=== PATIENT | female | born 1995 | race Caucasian/White ===

== ENCOUNTER 2023-05-26 16:06 | Emergency (ER) | payer OTHER, SELFPAY ==
[2023-05-26 16:15] VITALS: BP 99/61; PULSE 87; RESP 18; TEMP 36.7; O2SAT 99
[2023-05-26] MEDS: 0.9 % SODIUM CHLORIDE 1,000 ML 1000 ML IV (16:48)
[2023-05-26 17:03] LABS: Bilirubin Urine NEGATIVE (NEGATIVE); Blood Urine TRACE-I (NEGATIVE); Clarity Urine CLEAR (CLEAR); Color Urine YELLOW (YELLOW); Glucose Urine UA NEGATIVE (NEGATIVE); Ketones Urine NEGATIVE (NEGATIVE); Leukocyte Esterase Urine TRACE (NEGATIVE); Nitrite Urine NEGATIVE (NEGATIVE); Protein Urine 30 mg/dL (NEG/TRACE); Specific Gravity Urine 1.025 (1.005-1.025); Urobilinogen Urine 0.2 EU/dL (0.2-1.0); pH Urine 6.5 (5.0-9.0)
[2023-05-26 17:13] LABS: Bacteria Urine TRACE #/HPF (NONE SEEN); Cast Seen? NONE SEEN #/LPF (NONE SEEN); Crystals Seen? None Seen #/HPF (None Seen); Mucus Urine TRACE (NONE SEEN); Squamous Epithelial Cell Urine MODERATE #/LPF (NONE/RARE); Urine Culture Indicated YES
[2023-05-26 17:27] LABS: Basophils Absolute Auto 0.1 10^3/uL (0.0-0.1); Basophils Percent Auto 0.7 % (0.2-2.0); Eosinophils Absolute Auto 0.1 10^3/uL (0.0-0.7); Eosinophils Percent Auto 1.1 % (0.9-7.0); Hematocrit 38.3 % (36.0-48.0); Hemoglobin 13.2 g/dL (12.0-16.0); Immature Granulocytes Abs Auto 0.02 10^3/uL (0.00-0.03); Immature Granulocytes Pct Auto 0.3 % (0.0-0.5); Lymphocytes Absolute Auto 1.4 10^3/uL (1.2-3.8); Lymphocytes Percent Auto 18.5 % (20.5-60.0); Mean Corpuscular HGB Conc 34.5 g/dL (29.9-35.2); Mean Corpuscular Hemoglobin 31.6 pg (26.7-34.0); Mean Corpuscular Volume 91.6 fL (81.0-99.0); Mean Platelet Volume 10.6 fL (9.5-13.5); Monocytes Absolute Auto 0.4 10^3/uL (0.3-0.8); Monocytes Percent Auto 5.4 % (1.7-12.0); Neutrophils Absolute Auto 5.6 10^3/uL (1.4-6.5); Platelet Count 236 10^3/uL (150-450); Red Blood Count 4.18 10^6/uL (4.20-5.40); Red Cell Distribution Width 12.7 % (11.0-15.0); White Blood Count 7.6 10^3/uL (4.0-11.0)
[2023-05-26] MEDS: ONDANSETRON PF 4 MG/2 ML VIAL IV (17:30)
[2023-05-26 17:47] VITALS: BP 101/54; PULSE 57; RESP 18; O2SAT 100
[2023-05-26 17:49] LABS: Alanine Aminotransferase 16 U/L (14-59); Albumin Globulin Ratio 1.3; Alkaline Phosphatase 42 U/L (46-116); Anion Gap 12.6; Aspartate Amino Transferase 19 U/L (15-37); Bilirubin Total 0.4 mg/dL (0.2-1.0); Calcium 8.9 mg/dL (8.5-10.1); Carbon Dioxide 25.2 mmol/L (21.0-32.0); Chloride 105 mmol/L (98-107); Estimated GFR (African America >60 (>=60); Estimated GFR (Non-African Ame >60 (>=60); Glucose 90 mg/dL (74-106); HCG Quantitative <1 mIU/mL; Potassium 3.8 mmol/L (3.5-5.1); Sodium 139 mmol/L (136-145)
--- NOTE | 2023-05-26 17:59 | ED_ITS ---
HPI - General Adult General Chief complaint: Recheck/Abnormal Lab/Rx Stated complaint: ABDOMINAL PAIN AND VOMITTING Time Seen by Provider: 05/26/23 16:19 History of Present Illness HPI narrative: 28-year-old female presents here with a chief complaint of abdominal pain and concern for . She states she took a test at home. She presents here states that nausea vomiting earlier today. Vital signs are stable she is afebrile. Patient is deaf information gathered from freelance interpreter/translator. Patient states she had a heavy menstrual cycle in April the last four or five days. Since typical for her. Related Data Home Medications Medication Instructions Recorded Confirmed No Known Home Medications 05/26/23 05/26/23 Allergies Allergy/AdvReac Type Severity Reaction Status Date / Time phenylephrine AdvReac Intermediate Verified 05/26/23 16:15 [From [facility]] pyrilamine [From [facility]] AdvReac Intermediate Verified 05/26/23 16:15 Review of Systems ROS Narrative All Systems are negative except as noted/marked.All systems reviewed and otherwise negative Exam Narrative Exam Narrative: Nurses note and vital signs reviewed and patient is not hypoxic. General: The patient appears well and in no apparent distress. Patient is resting comfortably on cart. Skin: Warm, dry, no pallor noted. There is no rash noted. Head: Normocephalic, atraumatic Eye: Normal conjunctiva, no drainage, EOMI. PERRL Respiratory: Patient is in no distress, no accessory muscle use, lungs are clear to auscultation, no wheezing, rales or rhonchi Back: non-tender, no CVA tenderness bilaterally to percussion. GI: Normal bowel sounds, no tenderness to palpation, no masses appreciated. No rebound, guarding, or rigidity noted. Musculoskeletal: The patient has no evidence of calf tenderness, no pitting edema, symmetrical pulses noted bilaterally Neurological: A&O x4, normal speech Psychiatric: Cooperative Constitutional Vital Signs - 24 hr 05/26/23 16:15 05/26/23 17:47 Temperature 98.1 F Pulse Rate 57 L Pulse Rate [Monitor] 87 Respiratory Rate 18 18 Blood Pressure 101/54 L Blood Pressure [Left Arm] 99/61 Pulse Oximetry 99 100 Course Vital Signs Vital signs: Vital Signs Temperature 98.1 F 05/26/23 16:15 Pulse Rate 87 05/26/23 16:15 Respiratory Rate 18 05/26/23 16:15 Blood Pressure 99/61 05/26/23 16:15 Pulse Oximetry 99 05/26/23 16:15 Temperature 98.1 F 05/26/23 16:15 Pulse Rate 57 L 05/26/23 17:47 Respiratory Rate 18 05/26/23 17:47 Blood Pressure 101/54 L 05/26/23 17:47 Pulse Oximetry 100 05/26/23 17:47 Medical Decision Making MDM Narrative Medical decision making narrative: Patient presents with a chief complaint of nausea and concern for . She had not had a period since April 25. She was requesting a hCG Quant. CBC BMP and urinalysis were obtained she is not urinalysis was also within normal limits. Patient medicated here with IV fluids and Zofran. She does feel better she states she would like some Zofran for home. Explained her nausea vomiting may be due to gastritis. She has nothing significant at this time. Abdomen soft nontender palpation vital signs are stable. She is currently afebrile. Patient's results were discussed with freelance interpreter/translator who did sign language for her. Patient agrees with plan of care Medical Records Medical records reviewed: Yes I reviewed the patient's medical records Lab Data Lab results reviewed: Yes I reviewed the patient's lab results Labs: Lab Results 05/26/23 05/26/23 Range/Units 16:25 16:50 WBC 7.6 (4.0-11.0) 10^3/uL RBC 4.18 L (4.20-5.40) 10^6/uL Hgb 13.2 (12.0-16.0) g/dL Hct 38.3 (36.0-48.0) % MCV 91.6 (81.0-99.0) fL MCH 31.6 (26.7-34.0) pg MCHC 34.5 (29.9-35.2) g/dL RDW 12.7 (11.0-15.0) % Plt Count 236 (150-450) 10^3/uL MPV 10.6 (9.5-13.5) fL Neut % (Auto) 74.0 (43.0-75.0) % Lymph % (Auto) 18.5 L (20.5-60.0) % [place] % (Auto) 5.4 (1.7-12.0) % Eos % (Auto) 1.1 (0.9-7.0) % Baso % (Auto) 0.7 (0.2-2.0) % Neut # (Auto) 5.6 (1.4-6.5) 10^3/uL Lymph # (Auto) 1.4 (1.2-3.8) 10^3/uL [place] # (Auto) 0.4 (0.3-0.8) 10^3/uL Eos # (Auto) 0.1 (0.0-0.7) 10^3/uL Baso # (Auto) 0.1 (0.0-0.1) 10^3/uL Abs Immat Gran (auto) 0.02 (0.00-0.03) 10^3/uL Imm/Tot Granulo (auto) 0.3 (0.0-0.5) % Sodium 139 (136-145) mmol/L Potassium 3.8 (3.5-5.1) mmol/L Chloride 105 (98-107) mmol/L Carbon Dioxide 25.2 (21.0-32.0) mmol/L Anion Gap 12.6 BUN 12.0 (7.0-18.0) mg/dL Creatinine 0.60 (0.55-1.02) mg/dL Est GFR ( Amer) >60 (>=60) Est GFR (Non-Af Amer) >60 (>=60) BUN/Creatinine Ratio 20.0 Glucose 90 (74-106) mg/dL Calcium 8.9 (8.5-10.1) mg/dL Total Bilirubin 0.4 (0.2-1.0) mg/dL AST 19 (15-37) U/L ALT 16 (14-59) U/L Alkaline Phosphatase 42 L (46-116) U/L Total Protein 7.0 (6.4-8.2) g/dL Albumin 4.0 (3.4-5.0) g/dL Globulin 3.0 g/dL Albumin/Globulin Ratio 1.3 HCG, Quant <1 mIU/mL Urine Color Yellow (YELLOW) Urine Clarity Clear (CLEAR) Urine pH 6.5 (5.0-9.0) Ur Specific [place] 1.025 (1.005-1.025) Urine Protein 30 A (NEG/TRACE) mg/dL Urine Glucose (UA) Negative (NEGATIVE) mg/dL Urine Ketones Negative (NEGATIVE) mg/dL Urine Occult Blood Trace-i (NEGATIVE) Urine Nitrite Negative (NEGATIVE) Urine Bilirubin Negative (NEGATIVE) Urine Urobilinogen 0.2 (0.2-1.0) EU/dL Ur Leukocyte Esterase Trace A (NEGATIVE) Urine RBC 2-5 A (0-2) #/HPF Urine WBC 5-10 A (NONE SEEN) #/HPF Ur Squamous Epith Cells Moderate A (NONE/RARE) #/LPF Urine Crystals None seen (None Seen) #/HPF Urine Bacteria Trace A (NONE SEEN) #/HPF Urine Casts None seen (NONE SEEN) #/LPF Urine Mucus Trace A (NONE SEEN) Ur Culture Indicated? Yes Discharge Plan Discharge Chief Complaint: Recheck/Abnormal Lab/Rx Clinical Impression: Abdominal pain, Nausea & vomiting Patient Disposition: Home, Self-Care Time of Disposition Decision: 17:57 Prescriptions / Home Meds: No Action No Known Home Medications Instructions: Abdominal Pain (ED) Stand Alone Forms: Portal Instructions Referrals: Physician,Non-Staff, MD [Primary Care Provider] - 1 week
--- NOTE | 2023-05-29 09:56 | PC.NURSE ---
05/29/23 0956 called and left message for pt needed atb [facility] [place] as this is pt pharmacy. dr raman ordered amoxicillin 500 mg tid times 7 days for urine culture from 05/26/23. Zay Bright RN
== END 2023-05-26 18:21 | disposition home or self-care (01) ==
PROVIDERS: Physician Assistant; Emergency Provider Emergency Medicine
DX: R10.9 Unspecified abdominal pain (principal); R11.2 Nausea with vomiting, unspecified; H91.3 Deaf nonspeaking, not elsewhere classified
CPT/HCPCS: 36415; 80053; 81001; 84702; 85025; 87086; 87150; 87186; 96374; 99285

== ENCOUNTER 2023-07-20 16:35 | Outpatient (OUT) | payer OTHER, SELFPAY ==
[2023-07-20 17:22] LABS: HCG Quantitative <1 mIU/mL
== END 2023-07-20 16:36 | disposition home or self-care (01) ==
LOC: LAB 16:42
PROVIDERS: Visit Provider Obstetrics & Gynecology
DX: N92.6 Irregular menstruation, unspecified (principal)
CPT/HCPCS: 36415; 84702

== ENCOUNTER 2023-08-12 17:03 | Emergency (ER) | payer OTHER, SELFPAY ==
[2023-08-12 17:21] VITALS: BP 104/68; PULSE 68; RESP 18; TEMP 36.6; O2SAT 98; BMI 19.1
--- NOTE | 2023-08-12 18:46 | ED.GENADUL1 ---
HPI - General Adult General Chief complaint: Abdominal Pain Stated complaint: ABDOMINAL PAIN, BLEEDING OFF/ON Time Seen by Provider: 08/12/23 17:55 Source: patient Mode of arrival: walk-in Limitations: no limitations History of Present Illness HPI narrative: Patient is deaf, A translator/interpreter has been used for sign language, 3 different interpreters during her Emergency Room stay which has been very effective and communication of her history and physical illness, physical exam, disposition, plan and treatment plan and follow-up plan. Communication has been affected. CARMEN rn Was at bedside throughout the entire HPI and physical exam initially, AND Alicia rn Was at bedside throughout the entire discharge DISCUSSION; explanation of treatment plan, my discussion with Dr. Rankin, and the need for follow-up with [place] [facility] [employer] [facility]. Patient is a 28-year-old female who is presenting to the Emergency Room With chief complaint of one month of dysfunctional uterine bleeding, intermittent cramping and looking for answers on how to stop the bleeding, and patient was to have the etiology why she's bleeding, was causing her cramping. Patient currently has been seeing Dr. Rankin, patient is moving to [place] on Tuesday. Patient's had no new trauma. Patient stated several days ago she was having intercourse with her boyfriend and she did have some pain during intercourse so they stopped. Patient has no urinary frequency, urgency or burning. Patient has no fever or chills. No chest pain or shortness of breath. Patient has no other acute complaints Today at this time. Patient denies any type of sexual or physical assault. . All systems are negative except as noted/marked. All systems reviewed and otherwise negative. . Nurses note and vital signs reviewed and patient is not hypoxic. General: The patient appears well and in no apparent distress. Patient is resting comfortably on cart. Patient is not toxic, lethargic, or listless Skin: Warm, dry, no pallor noted. There is no rash noted. No petechiae, purpura. Multiple piercings and tattoos, no signs of secondary infection. Head: Normocephalic, atraumatic Eye: Normal conjunctiva, no drainage, EOMI. PERRL Ears, Nose, Mouth, and Throat: oral mucosa is moist. Nares patent. Mouth without vesicles. Cardiovascular: Regular Rate and Rhythm, no murmur, gallop, rub Respiratory: Patient is in no distress, no accessory muscle use, lungs are clear to auscultation, no wheezing, rales or rhonchi Back: non-tender, no CVA tenderness bilaterally to percussion. No CT LS midline pain GI: soft, Mild Tenderness to palpation To suprapubic area, no tenderness to palpation to the right and left lower quadrant, no pain over McBurney's point, no flank pain bilateral. Very benign abdomen, otherwise no tenderness to palpation, no masses appreciated. No rebound, guarding, or rigidity noted. No flank pain bilateral, No distention Musculoskeletal: Patient has full range of motion of all of the extremities, no motor, sensory, or focal neurological deficits Neurological: A&O x3, normal speech Psychiatric: Cooperative Related Data Previous Rx's Medication Instructions Recorded megestrol 20 mg tablet 20 mg PO ONCE 30 days #30 tabs 08/12/23 Allergies Allergy/AdvReac Type Severity Reaction Status Date / Time phenylephrine AdvReac Intermediate Verified 05/26/23 16:15 [From [facility]] pyrilamine [From [facility]] AdvReac Intermediate Verified 05/26/23 16:15 Exam Constitutional Vital Signs, click to edit/add: Last Vital Signs Temp 97.8 F 08/12/23 17:21 Pulse 68 08/12/23 17:21 Resp 18 08/12/23 17:21 BP 104/68 08/12/23 17:21 Pulse Ox 98 08/12/23 17:21 O2 Del Method Room Air 08/12/23 17:21 Course Vital Signs Vital signs: Vital Signs Temperature 97.8 F 08/12/23 17:21 Pulse Rate 68 08/12/23 17:21 Respiratory Rate 18 08/12/23 17:21 Blood Pressure 104/68 08/12/23 17:21 Pulse Oximetry 98 08/12/23 17:21 Oxygen Delivery Method Room Air 08/12/23 17:21 Temperature 97.8 F 08/12/23 17:21 Pulse Rate 68 08/12/23 17:21 Respiratory Rate 18 08/12/23 17:21 Blood Pressure 104/68 08/12/23 17:21 Pulse Oximetry 98 08/12/23 17:21 Oxygen Delivery Method Room Air 08/12/23 17:21 Medical Decision Making MDM Narrative Medical decision making narrative: I discussed the case with Dr. Rankin, he recommended starting patient on Megace 20 mg daily for 30 days. He agrees no acute indication for lab work or ultrasound testing at this time, this is chronic been going on for the past month. He recommends following up and continuing care in establishing plan with new [employer] [employer] in [place]. He is aware the patient is moving on August 17, this coming Tuesday. Discharge Plan Discharge Chief Complaint: Abdominal Pain Clinical Impression: DUB (dysfunctional uterine bleeding) Patient Disposition: Home, Self-Care Time of Disposition Decision: 17:59 Condition: Good Prescriptions / Home Meds: New megestrol 20 mg tablet 20 mg PO ONCE 30 Days Qty: 30 0RF Instructions: Abnormal (Dysfunctional) Uterine Bleeding (ED) Additional Instructions: Take medication as prescribed To help stop the cramping and bleeding. Establish a new [employer] [employer] in [place] to help with any other female care as needed. Stand Alone Forms: Portal Instructions Referrals: Physician,Non-Staff, MD [Primary Care Provider] - 1 week Discharge Date/Time: 08/12/23 18:19
== END 2023-08-12 18:19 | disposition home or self-care (01) ==
PROVIDERS: Emergency Provider Emergency Medicine
DX: N93.8 Other specified abnormal uterine and vaginal bleeding (principal); H91.93 Unspecified hearing loss, bilateral
CPT/HCPCS: 99283

== ENCOUNTER 2023-11-15 18:00 | Emergency (ER) | payer OTHER, SELFPAY ==
--- NOTE | 2023-11-15 18:02 | US_ITS ---
The [address] [address] Patient Name: CATALINA GREEN MRN: [id number] date: 1995 Sex: F Assigned Patient Location: ED.MAIN Current Patient Location: Accession/Order Number: [id number] Exam Date: 11/15/2023 21:00 Report Date: 11/15/2023 22:05 At the request of: NIDIA KC Procedure: US OB transvaginal EXAMINATION: US OB transvaginal TECHNIQUE: Transabdominal followed by transvaginal for better detail. Grayscale and color flow Doppler imaging. HISTORY: vag bleeding. COMPARISON: CT scan 09/23/2022 FINDINGS: Uterus and cervix: Uterus measures 9.4 x 5.4 x 4.8 cm. No focal abnormality. Endometrium: Thickness measures 11mm. No intrauterine identified. Right ovary: Measures 2.5 x 1.5 x 2.2 cm. Normal sim scale and Doppler appearance. Left ovary: Measures 3.3 x 2.1 x 3.1 cm. Normal sim scale and Doppler appearance. Adnexa: No adnexal mass lesion. Cul-de-sac: Small amount of simple appearing free fluid in the cul-de-sac. US/US OB transvaginal IMPRESSION: No evidence for intrauterine or extrauterine . Continued monitoring of beta hCG levels recommended with repeat ultrasound if clinically necessary. Electronically authenticated by: BRY CARTER Date: 11/15/2023 22:05
[2023-11-15 18:14] VITALS: BP 123/70; PULSE 86; RESP 16; TEMP 36.8; O2SAT 97; BMI 20.8
[2023-11-15 18:37] LABS: Basophils Absolute Auto 0.1 10^3/uL (0.0-0.1); Basophils Percent Auto 0.6 % (0.2-2.0); Eosinophils Absolute Auto 0.1 10^3/uL (0.0-0.7); Hematocrit 38.6 % (36.0-48.0); Hemoglobin 13.2 g/dL (12.0-16.0); Immature Granulocytes Abs Auto 0.01 10^3/uL (0.00-0.03); Immature Granulocytes Pct Auto 0.1 % (0.0-0.5); Lymphocytes Absolute Auto 1.8 10^3/uL (1.2-3.8); Mean Corpuscular HGB Conc 34.2 g/dL (29.9-35.2); Mean Corpuscular Hemoglobin 31.3 pg (26.7-34.0); Mean Corpuscular Volume 91.5 fL (81.0-99.0); Monocytes Absolute Auto 0.6 10^3/uL (0.3-0.8); Monocytes Percent Auto 6.2 % (1.7-12.0); Neutrophils Absolute Auto 7.3 10^3/uL (1.4-6.5); Neutrophils Percent Auto 74.1 % (43.0-75.0); Platelet Count 236 10^3/uL (150-450); Red Blood Count 4.22 10^6/uL (4.20-5.40); Red Cell Distribution Width 12.4 % (11.0-15.0); White Blood Count 9.8 10^3/uL (4.0-11.0)
[2023-11-15 19:07] LABS: HCG Quantitative 4501 mIU/mL
--- NOTE | 2023-11-15 19:16 | ED.GENADUL1 ---
Documented by User: LEOPOLDO Davies 11/15/23 21:30 HPI - General Adult General Chief complaint: Vaginal Bleeding Stated complaint: 6WKS /BLEEDING CRAMPS Time Seen by Provider: 11/15/23 18:01 Source: director of student affairs Mode of arrival: walk-in Limitations: language barrier History of Present Illness HPI narrative: Patient is a A3 who presents to the emergency department for the evaluation of vaginal bleeding that began this afternoon. Patient was 28 years old, she is deaf and sign language interpreting services are being used for history and physical. Patient states she was in the emergency department earlier today with her son who fell and hit his head, on going home this afternoon, the patient had pelvic cramping and passed a small amount of red blood. She states the bleeding got slightly worse on arrival to the ER. She is currently not experiencing any pain, she has had no fevers or vomiting. She has had 3 previous miscarriages. No medications prior to arrival. Related Data Previous Rx's Medication Instructions Recorded megestrol 20 mg tablet 20 mg PO ONCE 30 days #30 tabs 08/12/23 acetaminophen 300 mg-codeine 30 mg 1 tab PO Q6H PRN pain 3 days #10 11/15/23 tablet tabs ondansetron 4 mg disintegrating 4 mg PO Q6H PRN nausea and 11/15/23 tablet vomiting #20 tabs Allergies Allergy/AdvReac Type Severity Reaction Status Date / Time phenylephrine AdvReac Intermediate Verified 05/26/23 16:15 [From [facility]] pyrilamine [From [facility]] AdvReac Intermediate Verified 05/26/23 16:15 Review of Systems ROS Constitutional Denies: fever or chills Ears, nose, mouth, and throat Denies: throat pain or nasal congestion Cardiovascular Denies: chest pain Respiratory Denies: shortness of breath Gastrointestinal Denies: abdominal pain, nausea or vomiting PFSH PFSH Social History Smoking status: Never smoker Exam Constitutional Vital Signs, click to edit/add: Last Vital Signs Temp 98.3 F 11/15/23 18:14 Pulse 86 11/15/23 18:14 Resp 16 11/15/23 18:14 BP 123/70 11/15/23 18:14 Pulse Ox 97 11/15/23 18:14 O2 Del Method Room Air 11/15/23 18:14 Course Vital Signs Vital signs: Vital Signs Temperature 98.3 F 11/15/23 18:14 Pulse Rate 86 11/15/23 18:14 Respiratory Rate 16 11/15/23 18:14 Blood Pressure 123/70 11/15/23 18:14 Pulse Oximetry 97 11/15/23 18:14 Oxygen Delivery Method Room Air 11/15/23 18:14 Temperature 98.3 F 11/15/23 18:14 Pulse Rate 86 11/15/23 18:14 Respiratory Rate 16 11/15/23 18:14 Blood Pressure 123/70 11/15/23 18:14 Pulse Oximetry 97 11/15/23 18:14 Oxygen Delivery Method Room Air 11/15/23 18:14 Medical Decision Making MDM Narrative Medical decision making narrative: 2128: Labs were obtained, patient has Rh- blood type, she was given RhoGAM in the emergency department. She has a quantitative hCG level of 4500 and was sent for an ultrasound to rule out ectopic and evaluate for miscarriage. Ultrasound results are pending at this time and case turned over to attending physician. Patient requested Tylenol for cramping. She has stable vital signs, abdomen is soft and benign and she is stable at time of signout to attending physician. Medical Records Medical records reviewed: Yes I reviewed the patient's medical records Lab Data Lab results reviewed: Yes I reviewed the patient's lab results Labs: Lab Results 11/15/23 11/15/23 Range/Units 18:20 18:25 WBC 9.8 (4.0-11.0) 10^3/uL RBC 4.22 (4.20-5.40) 10^6/uL Hgb 13.2 (12.0-16.0) g/dL Hct 38.6 (36.0-48.0) % MCV 91.5 (81.0-99.0) fL MCH 31.3 (26.7-34.0) pg MCHC 34.2 (29.9-35.2) g/dL RDW 12.4 (11.0-15.0) % Plt Count 236 (150-450) 10^3/uL MPV 10.0 (9.5-13.5) fL Neut % (Auto) 74.1 (43.0-75.0) % Lymph % (Auto) 18.0 L (20.5-60.0) % [place] % (Auto) 6.2 (1.7-12.0) % Eos % (Auto) 1.0 (0.9-7.0) % Baso % (Auto) 0.6 (0.2-2.0) % Neut # (Auto) 7.3 H (1.4-6.5) 10^3/uL Lymph # (Auto) 1.8 (1.2-3.8) 10^3/uL [place] # (Auto) 0.6 (0.3-0.8) 10^3/uL Eos # (Auto) 0.1 (0.0-0.7) 10^3/uL Baso # (Auto) 0.1 (0.0-0.1) 10^3/uL Abs Immat Gran (auto) 0.01 (0.00-0.03) 10^3/uL Imm/Tot Granulo (auto) 0.1 (0.0-0.5) % HCG, Quant 4501 mIU/mL Urine Color Lt. yellow (YELLOW) Urine Clarity Clear (CLEAR) Urine pH 8.0 (5.0-9.0) Ur Specific [place] 1.015 (1.005-1.025) Urine Protein Negative (NEG/TRACE) mg/dL Urine Glucose (UA) Negative (NEGATIVE) mg/dL Urine Ketones Negative (NEGATIVE) mg/dL Urine Occult Blood Large A (NEGATIVE) Urine Nitrite Negative (NEGATIVE) Urine Bilirubin Negative (NEGATIVE) Urine Urobilinogen 0.2 (0.2-1.0) EU/dL Ur Leukocyte Esterase Negative (NEGATIVE) Urine RBC 5-10 A (0-2) #/HPF Urine WBC None seen (NONE SEEN) #/HPF Ur Squamous Epith Cells Rare (NONE/RARE) #/LPF Urine Crystals None seen (None Seen) #/HPF Urine Bacteria None seen (NONE SEEN) #/HPF Urine Casts None seen (NONE SEEN) #/LPF Urine Mucus None seen (NONE SEEN) Blood Type B Negative Discharge Plan Discharge Chief Complaint: Vaginal Bleeding Clinical Impression: Miscarriage Patient Disposition: Home, Self-Care Time of Disposition Decision: 22:26 Condition: Good Mode of Transportation: Private Vehicle Prescriptions / Home Meds: New acetaminophen-codeine 300-30 mg tablet 1 tab PO Q6H PRN (Reason: pain) 3 Days Qty: 10 0RF ondansetron 4 mg tablet,disintegrating 4 mg PO Q6H PRN (Reason: nausea and vomiting) Qty: 20 0RF No Action megestrol 20 mg tablet 20 mg PO ONCE 30 Days Qty: 30 0RF Stand Alone Forms: Portal Instructions Referrals: Physician,Non-Staff, [Primary Care Provider] - 1 week Documented by User: Keven Frausto MD 11/15/23 22:29 HPI - General Adult General Chief complaint: Vaginal Bleeding Stated complaint: 6WKS /BLEEDING CRAMPS Time Seen by Provider: 11/15/23 18:01 Related Data Previous Rx's Medication Instructions Recorded megestrol 20 mg tablet 20 mg PO ONCE 30 days #30 tabs 08/12/23 acetaminophen 300 mg-codeine 30 mg 1 tab PO Q6H PRN pain 3 days #10 11/15/23 tablet tabs ondansetron 4 mg disintegrating 4 mg PO Q6H PRN nausea and 11/15/23 tablet vomiting #20 tabs Allergies Allergy/AdvReac Type Severity Reaction Status Date / Time phenylephrine AdvReac Intermediate Verified 05/26/23 16:15 [From [facility]] pyrilamine [From [facility] CT] AdvReac Intermediate Verified 05/26/23 16:15 PFSH PFSH Social History Smoking status: Never smoker Exam Constitutional Vital Signs, click to edit/add: Last Vital Signs Temp 98.3 F 11/15/23 18:14 Pulse 86 11/15/23 18:14 Resp 16 11/15/23 18:14 BP 123/70 11/15/23 18:14 Pulse Ox 97 11/15/23 18:14 O2 Del Method Room Air 11/15/23 18:14 Course Vital Signs Vital signs: Vital Signs Temperature 98.3 F 11/15/23 18:14 Pulse Rate 86 11/15/23 18:14 Respiratory Rate 16 11/15/23 18:14 Blood Pressure 123/70 11/15/23 18:14 Pulse Oximetry 97 11/15/23 18:14 Oxygen Delivery Method Room Air 11/15/23 18:14 Temperature 98.3 F 11/15/23 18:14 Pulse Rate 86 11/15/23 18:14 Respiratory Rate 16 11/15/23 18:14 Blood Pressure 123/70 11/15/23 18:14 Pulse Oximetry 97 11/15/23 18:14 Oxygen Delivery Method Room Air 11/15/23 18:14 Medical Decision Making MDM Narrative Medical decision making narrative: 2128: Labs were obtained, patient has Rh- blood type, she was given RhoGAM in the emergency department. She has a quantitative hCG level of 4500 and was sent for an ultrasound to rule out ectopic and evaluate for miscarriage. Ultrasound results are pending at this time and case turned over to attending physician. Patient requested Tylenol for cramping. She has stable vital signs, abdomen is soft and benign and she is stable at time of signout to attending physician. 10:30pm ultrasound shows no evidence of IUP or extrauterine . Titer is 4501 and she has received Rhogam. findings are discussed thoroughly with the patient and she was instructed to call her business services analyst in the morning for follow-up. Treatment diagnosis and follow-up were discussed with the patient. Differential Diagnosis Differential Diagnosis: IUP, ectopic, miscarriage, threatened miscarriage Lab Data Labs: Lab Results 11/15/23 11/15/23 Range/Units 18:20 18:25 WBC 9.8 (4.0-11.0) 10^3/uL RBC 4.22 (4.20-5.40) 10^6/uL Hgb 13.2 (12.0-16.0) g/dL Hct 38.6 (36.0-48.0) % MCV 91.5 (81.0-99.0) fL MCH 31.3 (26.7-34.0) pg MCHC 34.2 (29.9-35.2) g/dL RDW 12.4 (11.0-15.0) % Plt Count 236 (150-450) 10^3/uL MPV 10.0 (9.5-13.5) fL Neut % (Auto) 74.1 (43.0-75.0) % Lymph % (Auto) 18.0 L (20.5-60.0) % [place] % (Auto) 6.2 (1.7-12.0) % Eos % (Auto) 1.0 (0.9-7.0) % Baso % (Auto) 0.6 (0.2-2.0) % Neut # (Auto) 7.3 H (1.4-6.5) 10^3/uL Lymph # (Auto) 1.8 (1.2-3.8) 10^3/uL [place] # (Auto) 0.6 (0.3-0.8) 10^3/uL Eos # (Auto) 0.1 (0.0-0.7) 10^3/uL Baso # (Auto) 0.1 (0.0-0.1) 10^3/uL Abs Immat Gran (auto) 0.01 (0.00-0.03) 10^3/uL Imm/Tot Granulo (auto) 0.1 (0.0-0.5) % HCG, Quant 4501 mIU/mL Urine Color Lt. yellow (YELLOW) Urine Clarity Clear (CLEAR) Urine pH 8.0 (5.0-9.0) Ur Specific [place] 1.015 (1.005-1.025) Urine Protein Negative (NEG/TRACE) mg/dL Urine Glucose (UA) Negative (NEGATIVE) mg/dL Urine Ketones Negative (NEGATIVE) mg/dL Urine Occult Blood Large A (NEGATIVE) Urine Nitrite Negative (NEGATIVE) Urine Bilirubin Negative (NEGATIVE) Urine Urobilinogen 0.2 (0.2-1.0) EU/dL Ur Leukocyte Esterase Negative (NEGATIVE) Urine RBC 5-10 A (0-2) #/HPF Urine WBC None seen (NONE SEEN) #/HPF Ur Squamous Epith Cells Rare (NONE/RARE) #/LPF Urine Crystals None seen (None Seen) #/HPF Urine Bacteria None seen (NONE SEEN) #/HPF Urine Casts None seen (NONE SEEN) #/LPF Urine Mucus None seen (NONE SEEN) Blood Type B Negative Imaging Data pelvic ultrasound: Radiologist's impression: Procedure: US OB transvaginal EXAMINATION: US OB transvaginal TECHNIQUE: Transabdominal followed by transvaginal for better detail. Grayscale and color flow Doppler imaging. HISTORY: vag bleeding. COMPARISON: CT scan 09/23/2022 FINDINGS: Uterus and cervix: Uterus measures 9.4 x 5.4 x 4.8 cm. No focal abnormality. Endometrium: Thickness measures 11mm. No intrauterine identified. Right ovary: Measures 2.5 x 1.5 x 2.2 cm. Normal sim scale and Doppler appearance. Left ovary: Measures 3.3 x 2.1 x 3.1 cm. Normal sim scale and Doppler appearance. Adnexa: No adnexal mass lesion. Cul-de-sac: Small amount of simple appearing free fluid in the cul-de-sac. IMPRESSION: No evidence for intrauterine or extrauterine . Continued monitoring of beta hCG levels recommended with repeat ultrasound if clinically necessary. Electronically authenticated by: BRY CARTER Date: 11/15/2023 22:05 Discharge Plan Discharge Chief Complaint: Vaginal Bleeding Clinical Impression: Miscarriage Patient Disposition: Home, Self-Care Time of Disposition Decision: 22:26 Condition: Good Mode of Transportation: Private Vehicle Prescriptions / Home Meds: New acetaminophen-codeine 300-30 mg tablet 1 tab PO Q6H PRN (Reason: pain) 3 Days Qty: 10 0RF ondansetron 4 mg tablet,disintegrating 4 mg PO Q6H PRN (Reason: nausea and vomiting) Qty: 20 0RF No Action megestrol 20 mg tablet 20 mg PO ONCE 30 Days Qty: 30 0RF Stand Alone Forms: Portal Instructions Referrals: Physician,Non-Staff, MD [Primary Care Provider] - 1 week
[2023-11-15 19:37] LABS: Bilirubin Urine NEGATIVE (NEGATIVE); Blood Urine LARGE (NEGATIVE); Clarity Urine CLEAR (CLEAR); Color Urine LT. YELLOW (YELLOW); Glucose Urine UA NEGATIVE (NEGATIVE); Ketones Urine NEGATIVE (NEGATIVE); Leukocyte Esterase Urine NEGATIVE (NEGATIVE); Nitrite Urine NEGATIVE (NEGATIVE); Protein Urine NEGATIVE (NEG/TRACE); Specific Gravity Urine 1.015 (1.005-1.025); Urobilinogen Urine 0.2 EU/dL (0.2-1.0)
[2023-11-15 19:47] LABS: Urine Microscopic Indicated YES
[2023-11-15 19:51] LABS: Bacteria Urine NONE SEEN #/HPF (NONE SEEN); Cast Seen? NONE SEEN #/LPF (NONE SEEN); Crystals Seen? None Seen #/HPF (None Seen); Mucus Urine NONE SEEN (NONE SEEN); Squamous Epithelial Cell Urine RARE #/LPF (NONE/RARE); WBC Urine NONE SEEN #/HPF (NONE SEEN)
[2023-11-15] MEDS: RHO(D) IMMUNE GLOBULIN 1,500 UNIT SYRINGE 1500 UNIT IM (20:03)
[2023-11-15] MEDS: ACETAMINOPHEN 325 MG TABLET 650 MG PO (20:05)
== END 2023-11-15 22:40 | disposition home or self-care (01) ==
PROVIDERS: Physician Assistant; Emergency Provider Emergency Medicine
DX: O03.9 Complete or unspecified spontaneous abortion without complication (principal); H91.3 Deaf nonspeaking, not elsewhere classified; Z67.91 Unspecified blood type, Rh negative
CPT/HCPCS: 36415; 76817; 81001; 84702; 85025; 86900; 86901; 96372; 99285; J2790

== ENCOUNTER 2023-11-16 14:30 | Emergency (ER) | payer OTHER, SELFPAY ==
--- NOTE | 2023-11-16 14:37 | ECG_ITS ---
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
[2023-11-16 14:52] VITALS: BP 115/69; PULSE 91; RESP 20; TEMP 37.2; O2SAT 98
[2023-11-16 15:14] LABS: Basophils Absolute Auto 0.1 10^3/uL (0.0-0.1); Basophils Percent Auto 0.4 % (0.2-2.0); Eosinophils Percent Auto 0.3 % (0.9-7.0); Hematocrit 38.6 % (36.0-48.0); Hemoglobin 12.9 g/dL (12.0-16.0); Immature Granulocytes Abs Auto 0.04 10^3/uL (0.00-0.03); Immature Granulocytes Pct Auto 0.3 % (0.0-0.5); Lymphocytes Absolute Auto 2.1 10^3/uL (1.2-3.8); Lymphocytes Percent Auto 16.2 % (20.5-60.0); Mean Corpuscular HGB Conc 33.4 g/dL (29.9-35.2); Mean Corpuscular Hemoglobin 30.5 pg (26.7-34.0); Mean Corpuscular Volume 91.3 fL (81.0-99.0); Mean Platelet Volume 10.2 fL (9.5-13.5); Monocytes Absolute Auto 0.7 10^3/uL (0.3-0.8); Monocytes Percent Auto 5.4 % (1.7-12.0); Neutrophils Absolute Auto 10.1 10^3/uL (1.4-6.5); Neutrophils Percent Auto 77.4 % (43.0-75.0); Platelet Count 271 10^3/uL (150-450); Red Blood Count 4.23 10^6/uL (4.20-5.40); Red Cell Distribution Width 12.7 % (11.0-15.0); White Blood Count 13.1 10^3/uL (4.0-11.0)
[2023-11-16 15:29] LABS: Alanine Aminotransferase 8 U/L (14-59); Albumin Globulin Ratio 1.1; Albumin Level 3.8 g/dL (3.4-5.0); Alkaline Phosphatase 52 U/L (46-116); Anion Gap 13.1; Aspartate Amino Transferase 16 U/L (15-37); BUN Creatinine Ratio 12.1; Bilirubin Total 0.5 mg/dL (0.2-1.0); Calcium 9.5 mg/dL (8.5-10.1); Carbon Dioxide 25.3 mmol/L (21.0-32.0); Chloride 102 mmol/L (98-107); Estimated GFR (African America >60 (>=60); Estimated GFR (Non-African Ame >60 (>=60); Globulin 3.6 g/dL; Glucose 96 mg/dL (74-106); Potassium 3.4 mmol/L (3.5-5.1); Sodium 137 mmol/L (136-145); Total Protein 7.4 g/dL (6.4-8.2)
[2023-11-16] MEDS: 0.9 % SODIUM CHLORIDE 1,000 ML 1000 ML IV (15:34)
[2023-11-16 16:06] LABS: HCG Quantitative 1940 mIU/mL
[2023-11-16] MEDS: ONDANSETRON PF 4 MG/2 ML VIAL IV ×2 (16:19→20:59)
[2023-11-16] MEDS: HYDROMORPHONE HCL 1 MG/ML CARTRIDGE IV (16:19)
[2023-11-16 16:40] LABS: Bilirubin Urine NEGATIVE (NEGATIVE); Blood Urine SMALL (NEGATIVE); Clarity Urine CLEAR (CLEAR); Color Urine YELLOW (YELLOW); Glucose Urine UA NEGATIVE (NEGATIVE); Ketones Urine TRACE mg/dL (NEGATIVE); Leukocyte Esterase Urine NEGATIVE (NEGATIVE); Nitrite Urine NEGATIVE (NEGATIVE); Protein Urine NEGATIVE (NEG/TRACE); Specific Gravity Urine 1.015 (1.005-1.025); Urobilinogen Urine 0.2 EU/dL (0.2-1.0)
[2023-11-16 16:41] LABS: Urine Microscopic Indicated YES
--- NOTE | 2023-11-16 16:48 | ED_ITS ---
HPI - Abdominal Pain General Chief Complaint: Abdominal Pain Stated Complaint: SYNCOPE Time Seen by Provider: 11/16/23 14:37 Source: resident engineer Mode of arrival: walk-in Limitations: language barrier History of Present Illness HPI narrative: An resident engineer was used in order to converse with this patient as she is deaf. Patient presents with left sided pelvic/lower abdominal pain that began last night. It became so intense that the patient passed out at home. Her friend was a witness and said that the patient was pale, her eyes were twitching and it took a long time for the patient to wake up. The patient apparently regained consciousness and continued to have the left pelvis/abdominal pain throughout the night. She had been evaluated in the ED yesterday and had a miscarriage - she passed a lot of blood vaginally and had no evidence of IUP of US. Her quant at that time was over 4000. She said that she continue to have some vaginal bleeding at home prior to the syncopal episode. Her REMNANTS CUTTER called her today and when she told the office what happened last night, they told her to come to the ED to be evaluated. In our ED on this visit, she complains of feeling dizzy and having left pelvic/LLQ abd pain. She told me that she took excedrin for the pain. Related Data Previous Rx's Medication Instructions Recorded megestrol 20 mg tablet 20 mg PO ONCE 30 days #30 tabs 08/12/23 acetaminophen 300 mg-codeine 30 mg 1 tab PO Q6H PRN pain 3 days #10 11/15/23 tablet tabs ondansetron 4 mg disintegrating 4 mg PO Q6H PRN nausea and 11/15/23 tablet vomiting #20 tabs Allergies Allergy/AdvReac Type Severity Reaction Status Date / Time phenylephrine AdvReac Intermediate Verified 05/26/23 16:15 [From [facility]] pyrilamine [From [facility]] AdvReac Intermediate Verified 05/26/23 16:15 PFSH PFSH Social History Smoking status: Never smoker Exam Narrative Exam Narrative: Nurses notes and vital signs reviewed and patient is not hypoxic. afebrile General: Well-appearing and in no apparent distress. Skin: Warm, dry, no pallor noted. Eye: Pupils are equal, round and EOMI. No scleral icterus. Ears, Nose, Mouth, and Throat: Oral mucosa is moist Cardiovascular: Regular Rate and Rhythm without murmur, gallop or rub. Respiratory: No accessory muscle use or respiratory distress. Lungs are clear to auscultation, no wheezing, rales or rhonchi Chest Wall: no tenderness Back: No CVA tenderness Musculoskeletal: normal ROM, no calf or popliteal tenderness, no lower extr emity edema/swelling GI: Abdomen is soft, non-distended. Normal bowel sounds. No masses appreciated. focal LLQ tenderness to palpation. No rebound, guarding, or rigidity noted. Neurological: A&O x4. No cranial nerve dysfunction observed. No truncal ataxia. Moves all extremities. Sensation intact. Psychiatric: Cooperative and interactive. Normal mood and affect. Constitutional Vital Signs, click to edit/add: Last Vital Signs Temp 98.9 F 11/16/23 14:52 Pulse 91 H 11/16/23 14:52 Resp 20 11/16/23 14:52 BP 115/69 11/16/23 14:52 Pulse Ox 98 11/16/23 14:52 O2 Del Method Room Air 11/16/23 14:52 Course Vital Signs Vital signs: Vital Signs Temperature 98.9 F 11/16/23 14:52 Pulse Rate 91 H 11/16/23 14:52 Respiratory Rate 20 11/16/23 14:52 Blood Pressure 115/69 11/16/23 14:52 Pulse Oximetry 98 11/16/23 14:52 Oxygen Delivery Method Room Air 11/16/23 14:52 Temperature 98.9 F 11/16/23 14:52 Pulse Rate 91 H 11/16/23 14:52 Respiratory Rate 20 11/16/23 14:52 Blood Pressure 115/69 11/16/23 14:52 Pulse Oximetry 98 11/16/23 14:52 Oxygen Delivery Method Room Air 11/16/23 14:52 MDM - Abdominal Pain MDM Narrative Medical decision making narrative: Peripheral IV established and blood drawn and sent for testing. Urine also ordered to be obtained and sent for testing. Ultrasound the pelvis also ordered. The patient's white blood cell count is elevated at 13.1, left shift is noted. CMP is notable for decreased potassium at 3.4, normal renal function, normal LFTs. UA negative Quantitative hCG has decreased from over 4000 yesterday to 1940 today, consistent with miscarriage. Prelim report from [facility] is enlarged left ovary from volume of 10 yesterday to 93 today with a lot more free fluid. I spoke with Dr Rankin and he wants the actual radiologist report. Patient signed out to Dr Araya and she will call [facility] to review the rad reading. Lab Data Attestation: I reviewed the patient's lab results. Labs: Lab Results 11/16/23 11/16/23 11/16/23 Range/Units 14:57 15:48 16:05 WBC 13.1 H (4.0-11.0) 10^3/uL RBC 4.23 (4.20-5.40) 10^6/uL Hgb 12.9 (12.0-16.0) g/dL Hct 38.6 (36.0-48.0) % MCV 91.3 (81.0-99.0) fL MCH 30.5 (26.7-34.0) pg MCHC 33.4 (29.9-35.2) g/dL RDW 12.7 (11.0-15.0) % Plt Count 271 (150-450) 10^3/uL MPV 10.2 (9.5-13.5) fL Neut % (Auto) 77.4 H (43.0-75.0) % Lymph % (Auto) 16.2 L (20.5-60.0) % [place] % (Auto) 5.4 (1.7-12.0) % Eos % (Auto) 0.3 L (0.9-7.0) % Baso % (Auto) 0.4 (0.2-2.0) % Neut # (Auto) 10.1 H (1.4-6.5) 10^3/uL Lymph # (Auto) 2.1 (1.2-3.8) 10^3/uL [place] # (Auto) 0.7 (0.3-0.8) 10^3/uL Eos # (Auto) 0.0 (0.0-0.7) 10^3/uL Baso # (Auto) 0.1 (0.0-0.1) 10^3/uL Abs Immat Gran (auto) 0.04 H (0.00-0.03) 10^3/uL Imm/Tot Granulo (auto) 0.3 (0.0-0.5) % Sodium 137 (136-145) mmol/L Potassium 3.4 L (3.5-5.1) mmol/L Chloride 102 (98-107) mmol/L Carbon Dioxide 25.3 (21.0-32.0) mmol/L Anion Gap 13.1 BUN 8.0 (7.0-18.0) mg/dL Creatinine 0.66 (0.55-1.02) mg/dL Est GFR ( Amer) >60 (>=60) Est GFR (Non-Af Amer) >60 (>=60) BUN/Creatinine Ratio 12.1 Glucose 96 (74-106) mg/dL Calcium 9.5 (8.5-10.1) mg/dL Total Bilirubin 0.5 (0.2-1.0) mg/dL AST 16 (15-37) U/L ALT 8 L (14-59) U/L Alkaline Phosphatase 52 (46-116) U/L Total Protein 7.4 (6.4-8.2) g/dL Albumin 3.8 (3.4-5.0) g/dL Globulin 3.6 g/dL Albumin/Globulin Ratio 1.1 HCG, Quant 1940 mIU/mL Urine Color Yellow (YELLOW) Urine Clarity Clear (CLEAR) Urine pH 7.0 (5.0-9.0) Ur Specific [place] 1.015 (1.005-1.025) Urine Protein Negative (NEG/TRACE) mg/dL Urine Glucose (UA) Negative (NEGATIVE) mg/dL Urine Ketones Trace A (NEGATIVE) mg/dL Urine Occult Blood Small A (NEGATIVE) Urine Nitrite Negative (NEGATIVE) Urine Bilirubin Negative (NEGATIVE) Urine Urobilinogen 0.2 (0.2-1.0) EU/dL Ur Leukocyte Esterase Negative (NEGATIVE) Urine RBC 2-5 A (0-2) #/HPF Urine WBC 2-5 A (NONE SEEN) #/HPF Ur Squamous Epith Cells Moderate A (NONE/RARE) #/LPF Urine Crystals None seen (None Seen) #/HPF Urine Bacteria Trace A (NONE SEEN) #/HPF Urine Casts None seen (NONE SEEN) #/LPF Urine Mucus Trace A (NONE SEEN) Ur Culture Indicated? No ECG Data Attestation: I personally reviewed and interpreted this ECG as follows: Interpretation: EKG interpretation: Emergency Department physician interpretation. Normal sinus rhythm at 75bpm. Normal axis, normal intervals and no ST segment elevation or depression. Normal EKG. Discharge Plan Discharge Chief Complaint: Abdominal Pain Clinical Impression: Pelvic pain, Syncope Patient Disposition: Still a Patient Prescriptions / Home Meds: No Action acetaminophen-codeine 300-30 mg tablet 1 tab PO Q6H PRN (Reason: pain) 3 Days Qty: 10 0RF ondansetron 4 mg tablet,disintegrating 4 mg PO Q6H PRN (Reason: nausea and vomiting) Qty: 20 0RF megestrol 20 mg tablet 20 mg PO ONCE 30 Days Qty: 30 0RF Referrals: Physician,Non-Staff, MD [Primary Care Provider] - 1 week
[2023-11-16 16:54] LABS: Bacteria Urine TRACE #/HPF (NONE SEEN); Cast Seen? NONE SEEN #/LPF (NONE SEEN); Crystals Seen? None Seen #/HPF (None Seen); Mucus Urine TRACE (NONE SEEN); Squamous Epithelial Cell Urine MODERATE #/LPF (NONE/RARE); Urine Culture Indicated NO
--- NOTE | 2023-11-16 17:28 | PC.NURSE ---
informed pt she was up next for ultrasound. pt admits that her pain is much better, jsut gets worse with movement. denies any needs
--- NOTE | 2023-11-16 17:30 | US_ITS ---
[address] [address] Patient Name: CATALINA GREEN MRN: [id number] date: 1995 Sex: F Assigned Patient Location: ER Current Patient Location: [facility] Accession/Order Number: [id number] Exam Date: 11/16/2023 17:30 Report Date: 11/16/2023 19:12 At the request of: ERASTO HARTMAN Procedure: US pelvis transvaginal EXAMINATION: US pelvis transvaginal TECHNIQUE: Transvaginal sonography. Grayscale and color flow Doppler imaging. HISTORY: left pelvic pain after miscarriage. COMPARISON: 11/15/2023 FINDINGS: Uterus and cervix: Uterus measures 10.5 x 4.6 x 5.4 cm. 3 mm echogenic focus within the posterior myometrium suggesting a calcification. Endometrium: Thickness measures 14mm. Endometrium is unremarkable without evidence for gestational sac. Right ovary: Measures 3.3 x 2.2 x 1.9 cm. Normal sim scale and Doppler appearance. Left ovary: Measures 8 x 3.7 x 6.1 3.3 cm. Round heterogeneous hypoechoic focus of the left ovary, question a hemorrhagic cyst. Normal Doppler appearance of the left ovary. Adnexa: No additional adnexal mass Cul-de-sac: Moderate simple appearing free fluid in the right adnexum. US/US pelvis transvaginal IMPRESSION: Hyperechoic abnormality of the left ovary which may represent a hemorrhagic corpus luteum. No convincing evidence for intrauterine or extrauterine . Electronically authenticated by: BRY CARTER Date: 11/16/2023 19:12
[2023-11-16 19:50] VITALS: BP 103/56; PULSE 71; RESP 14; O2SAT 98
[2023-11-16 20:46] VITALS: BP 115/76; PULSE 68; RESP 20; O2SAT 99
--- NOTE | 2023-11-16 20:46 | ED.ABDPAIN1 ---
HPI - Abdominal Pain General Chief Complaint: Abdominal Pain Stated Complaint: SYNCOPE Time Seen by Provider: 11/16/23 14:37 Source: field hand Mode of arrival: walk-in Limitations: language barrier History of Present Illness HPI narrative: This 28-year-old female was signed out to me at shift change pending ultrasound analysis. She presents for abdominal pain after having a miscarriage yesterday. The ultrasound report showed a large heterogeneous hypoechoic focus of the left ovary questionable hemorrhagic cyst with normal Doppler appearance of the left ovary. I did speak to Dr. Rankin, NETWORK PROJECT MANAGER on-call. He requested a reread of the ultrasound because it is unclear how large the cyst is in comparison to the ovary. The patient was seen and evaluated. At this time she states that her pain is not that bad. She is still having some cramping. She'll be given a dose of Zofran and a [place] and understands that I am waiting to hear back from radiology and then I will speak to Dr. Rankin again. Radiologist's addended their report to say that the complex hypoechoic rounded abnormality of the left ovary measures 3.3 cm in greatest dimension. This was discussed with Dr. Rankin. At this point the patient is comfortable and will be discharged home to follow-up as an outpatient. Related Data Previous Rx's Medication Instructions Recorded megestrol 20 mg tablet 20 mg PO ONCE 30 days #30 tabs 08/12/23 acetaminophen 300 mg-codeine 30 mg 1 tab PO Q6H PRN pain 3 days #10 11/15/23 tablet tabs ondansetron 4 mg disintegrating 4 mg PO Q6H PRN nausea and 11/15/23 tablet vomiting #20 tabs Allergies Allergy/AdvReac Type Severity Reaction Status Date / Time phenylephrine AdvReac Intermediate Verified 05/26/23 16:15 [From [facility]] pyrilamine [From [facility]] AdvReac Intermediate Verified 05/26/23 16:15 PFSH PFSH Social History Smoking status: Never smoker Exam Constitutional Vital Signs, click to edit/add: Last Vital Signs Temp 98.9 F 11/16/23 14:52 Pulse 68 11/16/23 22:20 Resp 20 11/16/23 22:20 BP 107/66 11/16/23 22:20 Pulse Ox 99 11/16/23 22:20 O2 Del Method Room Air 11/16/23 22:20 Course Vital Signs Vital signs: Vital Signs Temperature 98.9 F 11/16/23 14:52 Pulse Rate 91 H 11/16/23 14:52 Respiratory Rate 20 11/16/23 14:52 Blood Pressure 115/69 11/16/23 14:52 Pulse Oximetry 98 11/16/23 14:52 Oxygen Delivery Method Room Air 11/16/23 14:52 Temperature 98.9 F 11/16/23 14:52 Pulse Rate 68 11/16/23 22:20 Respiratory Rate 20 11/16/23 22:20 Blood Pressure 107/66 11/16/23 22:20 Pulse Oximetry 99 11/16/23 22:20 Oxygen Delivery Method Room Air 11/16/23 22:20 MDM - Abdominal Pain MDM Narrative Medical decision making narrative: See transfer of care note in HPI Medical Records Medical records narrative: [place] [address] Ultrasound Report Addendum Patient: CATALINA GREEN MR#: [id number] : 1995 Acct:[id number] Age/Sex: 28 / F ADM Date: 11/16/23 Loc: ER Attending Dr: Ordering Physician: Erasto Hartman D.O. Date of Service: 11/16/23 Procedure(s): US pelvis transvaginal Accession Number(s): [id number] cc: Erasto Hartman D.O.; Physician,Non-Staff [place]~ ADDENDUM The [place] [id number] Patient Name: CATALINA GREEN MRN: [id number] date: 1995 Sex: F Assigned Patient Location: ER Current Patient Location: ED.MAIN Accession/Order Number: [id number] Exam Date: 11/16/2023 17:30 Report Date: 11/16/2023 21:39 At the request of: ERASTO HARTMAN Procedure: US pelvis transvaginal Begin Addendum #1 The complex hypoechoic round abnormality of the left ovary measures 3. 3 cm greatest dimension. Original Report EXAMINATION: US pelvis transvaginal TECHNIQUE: Transvaginal sonography. Grayscale and color flow Doppler imaging. HISTORY: left pelvic pain after miscarriage. COMPARISON: 11/15/2023 FINDINGS: Uterus and cervix: Uterus measures 10. 5 x 4. 6 x 5. 4 cm. 3 mm echogenic focus within the posterior myometrium suggesting a calcification. Endometrium: Thickness measures 14mm. Endometrium is unremarkable without evidence for gestational sac. Right ovary: Measures 3. 3 x 2. 2 x 1. 9 cm. Normal sim scale and Doppler appearance. Left ovary: Measures 8 x 3. 7 x 6. 1 3. 3 cm. Round heterogeneous hypoechoic focus of the left ovary, question a hemorrhagic cyst. Normal Doppler appearance of the left ovary. Adnexa: No additional adnexal mass Cul-de-sac: Moderate simple appearing free fluid in the right adnexum. Addendum Dictated By: Mega Calloway M.D. Addendum Signed By: Addendum Cosigned By: DD/ TD/TT: / ADDENDUM US/US pelvis transvaginal IMPRESSION: Hyperechoic abnormality of the left ovary which may represent a hemorrhagic corpus luteum. No convincing evidence for intrauterine or extrauterine . Electronically authenticated by: MEGA CALLOWAY Date: 11/16/2023 21:39 Addendum Dictated By: Mega Calloway M.D. Addendum Signed By: Addendum Cosigned By: DD/ TD/TT: / [place] [address] Patient Name: CATALINA GREEN MRN: [id number] date: 1995 Sex: F Assigned Patient Location: ER Current Patient Location: ED.MAIN Accession/Order Number: [id number] Exam Date: 11/16/2023 17:30 Report Date: 11/16/2023 19:12 At the request of: ERASTO HARTMAN Procedure: US pelvis transvaginal EXAMINATION: US pelvis transvaginal TECHNIQUE: Transvaginal sonography. Grayscale and color flow Doppler imaging. HISTORY: left pelvic pain after miscarriage. COMPARISON: 11/15/2023 FINDINGS: Uterus and cervix: Uterus measures 10.5 x 4.6 x 5.4 cm. 3 mm echogenic focus within the posterior myometrium suggesting a calcification. Endometrium: Thickness measures 14mm. Endometrium is unremarkable without evidence for gestational sac. Right ovary: Measures 3.3 x 2.2 x 1.9 cm. Normal sim scale and Doppler appearance. Left ovary: Measures 8 x 3.7 x 6.1 3.3 cm. Round heterogeneous hypoechoic focus of the left ovary, question a hemorrhagic cyst. Normal Doppler appearance of the left ovary. Adnexa: No additional adnexal mass Cul-de-sac: Moderate simple appearing free fluid in the right adnexum. US/US pelvis transvaginal IMPRESSION: Hyperechoic abnormality of the left ovary which may represent a hemorrhagic corpus luteum. No convincing evidence for intrauterine or extrauterine . Electronically authenticated by: MEGA CALLOWAY Date: 11/16/2023 19:12 Lab Data Labs: Lab Results 11/16/23 11/16/23 11/16/23 Range/Units 14:57 15:48 16:05 WBC 13.1 H (4.0-11.0) 10^3/uL RBC 4.23 (4.20-5.40) 10^6/uL Hgb 12.9 (12.0-16.0) g/dL Hct 38.6 (36.0-48.0) % MCV 91.3 (81.0-99.0) fL MCH 30.5 (26.7-34.0) pg MCHC 33.4 (29.9-35.2) g/dL RDW 12.7 (11.0-15.0) % Plt Count 271 (150-450) 10^3/uL MPV 10.2 (9.5-13.5) fL Neut % (Auto) 77.4 H (43.0-75.0) % Lymph % (Auto) 16.2 L (20.5-60.0) % [place] % (Auto) 5.4 (1.7-12.0) % Eos % (Auto) 0.3 L (0.9-7.0) % Baso % (Auto) 0.4 (0.2-2.0) % Neut # (Auto) 10.1 H (1.4-6.5) 10^3/uL Lymph # (Auto) 2.1 (1.2-3.8) 10^3/uL [place] # (Auto) 0.7 (0.3-0.8) 10^3/uL Eos # (Auto) 0.0 (0.0-0.7) 10^3/uL Baso # (Auto) 0.1 (0.0-0.1) 10^3/uL Abs Immat Gran (auto) 0.04 H (0.00-0.03) 10^3/uL Imm/Tot Granulo (auto) 0.3 (0.0-0.5) % Sodium 137 (136-145) mmol/L Potassium 3.4 L (3.5-5.1) mmol/L Chloride 102 (98-107) mmol/L Carbon Dioxide 25.3 (21.0-32.0) mmol/L Anion Gap 13.1 BUN 8.0 (7.0-18.0) mg/dL Creatinine 0.66 (0.55-1.02) mg/dL Est GFR ( Amer) >60 (>=60) Est GFR (Non-Af Amer) >60 (>=60) BUN/Creatinine Ratio 12.1 Glucose 96 (74-106) mg/dL Calcium 9.5 (8.5-10.1) mg/dL Total Bilirubin 0.5 (0.2-1.0) mg/dL AST 16 (15-37) U/L ALT 8 L (14-59) U/L Alkaline Phosphatase 52 (46-116) U/L Total Protein 7.4 (6.4-8.2) g/dL Albumin 3.8 (3.4-5.0) g/dL Globulin 3.6 g/dL Albumin/Globulin Ratio 1.1 HCG, Quant 1940 mIU/mL Urine Color Yellow (YELLOW) Urine Clarity Clear (CLEAR) Urine pH 7.0 (5.0-9.0) Ur Specific [place] 1.015 (1.005-1.025) Urine Protein Negative (NEG/TRACE) mg/dL Urine Glucose (UA) Negative (NEGATIVE) mg/dL Urine Ketones Trace A (NEGATIVE) mg/dL Urine Occult Blood Small A (NEGATIVE) Urine Nitrite Negative (NEGATIVE) Urine Bilirubin Negative (NEGATIVE) Urine Urobilinogen 0.2 (0.2-1.0) EU/dL Ur Leukocyte Esterase Negative (NEGATIVE) Urine RBC 2-5 A (0-2) #/HPF Urine WBC 2-5 A (NONE SEEN) #/HPF Ur Squamous Epith Cells Moderate A (NONE/RARE) #/LPF Urine Crystals None seen (None Seen) #/HPF Urine Bacteria Trace A (NONE SEEN) #/HPF Urine Casts None seen (NONE SEEN) #/LPF Urine Mucus Trace A (NONE SEEN) Ur Culture Indicated? No Discharge Plan Discharge Chief Complaint: Abdominal Pain Clinical Impression: Pelvic pain, Syncope, Ovarian cyst Patient Disposition: Home, Self-Care Time of Disposition Decision: 22:05 Condition: Good Prescriptions / Home Meds: No Action acetaminophen-codeine 300-30 mg tablet 1 tab PO Q6H PRN (Reason: pain) 3 Days Qty: 10 0RF ondansetron 4 mg tablet,disintegrating 4 mg PO Q6H PRN (Reason: nausea and vomiting) Qty: 20 0RF megestrol 20 mg tablet 20 mg PO ONCE 30 Days Qty: 30 0RF Instructions: Miscarriage (ED) Stand Alone Forms: Portal Instructions Referrals: Physician,Non-Staff, MD [Primary Care Provider] - 1 week Discharge Date/Time: 11/16/23 22:25
[2023-11-16] MEDS: HYDROCODONE/ACET 5-325 MG TABLET 1 TAB PO (20:59)
[2023-11-16 22:20] VITALS: BP 107/66; PULSE 68; RESP 20; O2SAT 99
== END 2023-11-16 22:25 | disposition home or self-care (01) ==
PROVIDERS: Emergency Medicine; Emergency Provider Emergency Medicine
DX: R10.2 Pelvic and perineal pain (principal); R55 Syncope and collapse; N83.202 Unspecified ovarian cyst, left side; H91.3 Deaf nonspeaking, not elsewhere classified; R42 Dizziness and giddiness
CPT/HCPCS: 36415; 76830; 80053; 81001; 84702; 85025; 93005; 96361; 96374; 96375; 96376; 99285; J1170